=== PATIENT | male | born 1980 | race Caucasian/White ===

== ENCOUNTER 2017-06-15 12:54 | Emergency (ER) | payer MEDICAID ==
[~2017-06-15] VITALS: Ht 165.1 cm; Wt 75.0 kg
[2017-06-15 17:28] VITALS: BP 125/67
== END 2017-06-15 17:29 | disposition home or self-care (01) ==
LOC: ER 12:55
DX: S22.32XA Fracture of one rib, left side, initial encounter for closed fracture (principal); M25.571 Pain in right ankle and joints of right foot; V49.49XA Driver injured in collision with other motor vehicles in traffic accident, initial encounter; Y93.89 Activity, other specified; Y92.488 Other paved roadways as the place of occurrence of the external cause
CPT/HCPCS: 71111; 73630; 99284; Z7610

== ENCOUNTER 2017-06-29 10:29 | Emergency (ER) | payer MEDICAID ==
[~2017-06-29] VITALS: Ht 162.6 cm; Wt 82.0 kg
[2017-06-29 16:05] VITALS: BP 132/76
== END 2017-06-29 16:24 | disposition home or self-care (01) ==
LOC: ER 15:44
DX: M25.571 Pain in right ankle and joints of right foot (principal); Z87.828 Personal history of other (healed) physical injury and trauma
CPT/HCPCS: 99283